=== PATIENT | male | born 1930 | race Caucasian/White ===

== ENCOUNTER 2016-10-27 07:04 | Outpatient (CLI) | payer MEDICARE ==
[2016-10-27 08:10] LABS: ALT (SGPT) 18 U/L (0-55); AST (SGOT) 17 U/L (5-34); Alkaline Phosphatase 75 U/L (40-150); Anion Gap 12 mmol/L (10-20); BUN (Urea Nitrogen) 23 mg/dL (8.4-25.7); Bilirubin, Total 0.9 mg/dL (0.2-1.2); Calc. Creatinine Clearance 0 mL/min (70-130); Carbon Dioxide 25 mmol/L (23-31); Chloride 108 mmol/L (98-107); Estimated GFR-MDRD 41; Globulin 2.6 g/dL (2.4-3.5); LDL Cholesterol, Calculated 56 mg/dL; Protein, Total 6.6 g/dL (5.8-8.1)
== END 2016-10-27 07:05 | disposition home or self-care (01) ==
LOC: BURLAB 07:04
PROVIDERS: ATTEND Internal Medicine Cardiovascular Disease
DX: I48.0 Paroxysmal atrial fibrillation (principal)
CPT/HCPCS: 36415; 80053; 80061

== ENCOUNTER 2017-04-28 07:06 | Outpatient (CLI) | payer MEDICARE ==
[2017-04-28 10:54] LABS: ALT (SGPT) 24 U/L (8-55); AST (SGOT) 22 U/L (5-34); Alkaline Phosphatase 87 U/L (40-150); Anion Gap 12 mmol/L (10-20); BUN (Urea Nitrogen) 28 mg/dL (8.4-25.7); Bilirubin, Total 0.7 mg/dL (0.2-1.2); Calc. Creatinine Clearance 0 mL/min (70-130); Calcium 9.4 mg/dL (7.8-10.44); Carbon Dioxide 26 mmol/L (23-31); Cardiac Risk 3.8 (Less than 4.5); Chloride 107 mmol/L (98-107); Cholesterol 106 mg/dl (< 200 Desired); Estimated GFR-MDRD 42; Globulin 2.8 g/dL (2.4-3.5); Glucose 98 mg/dL (83-110); HDL Cholesterol 28 mg/dL (>60 Neg Risk); LDL Cholesterol, Calculated 58 mg/dL; Potassium 4.3 mmol/L (3.5-5.1); Protein, Total 6.8 g/dL (5.8-8.1); Sodium 141 mmol/L (136-145); Triglycerides 101 mg/dL (Less than 150)
== END 2017-04-28 07:07 | disposition home or self-care (01) ==
LOC: BURLAB 07:06
PROVIDERS: ATTEND Internal Medicine Cardiovascular Disease
DX: E78.00 Pure hypercholesterolemia, unspecified (principal)
CPT/HCPCS: 36415; 80053; 80061

== ENCOUNTER 2017-09-07 10:53 | Outpatient (CLI) | payer MEDICARE ==
--- NOTE | 2017-09-07 22:20 | RAD ---
CERVICAL SPINE: 09/07/2017 FINDINGS: AP, open mouth, and lateral views were provided. There is loss of the normal cervical lordosis, which may be due to muscle spasm. Disk space narrowin g is present at C4-C5, C5-C6, and C6-C7. Some facet arthritis is noted at several levels, especially in the upper cervical spine. No fracture, dislocation, or soft tissue swelling is seen. The C1 to dens distance is normal. Ossification of the ligamentum nuchae is noted. IMPRESSION: Prominent degenerative changes of the spine, as noted above, including multilevel degenerative disk d isease. POS: HOME
== END 2017-09-07 10:54 | disposition home or self-care (01) ==
LOC: BURRAD 10:53
PROVIDERS: ATTEND Family Medicine
DX: M54.2 Cervicalgia (principal); M47.892 Other spondylosis, cervical region; M50.321 Other cervical disc degeneration at C4-C5 level
CPT/HCPCS: 72040

== ENCOUNTER 2018-10-23 23:04 | Emergency (ER) | payer MEDICARE ==
[2018-10-23] MEDS ORDERED: Morphine 4 MG/ML VIAL ONE (23:33)
[2018-10-23 23:41] LABS: #Basophils 0.1 thou/uL (0.0-0.2); #Eosinphils 0.4 thou/uL (0.0-0.7); #Lymphocytes 1.1 thou/uL (1.20-3.40); #Monocytes 0.6 thou/uL (0.11-0.59); #Neutrophils 5.1 thou/uL (1.40-6.50); %Eosinophils 5.6 % (0.0-10.0); %Lymphocytes 15.3 % (21.0-51.0); %Monocytes 8.5 % (0.0-10.0); %Neutrophils 69.6 % (42.0-75.0); Hemoglobin 12.8 g/dL (14.0-18.0); Mean Corpuscular Hemoglobin 28.4 pg (27.0-31.0); Mean Platelet Volume 6.5 fL (7.4-10.4); Platelet Count 139 thou/uL (130-400); RBC Distribution Width 12.9 % (11.5-14.5); Red Blood Cell (RBC) Count 4.51 mill/uL (4.70-6.10); White Blood Cell (WBC) Count 7.3 thou/uL (4.8-10.8)
[2018-10-23 23:53] LABS: ALT (SGPT) 11 U/L (8-55); AST (SGOT) 14 U/L (5-34); Alkaline Phosphatase 108 U/L (40-150); Anion Gap 14 mmol/L (10-20); BUN (Urea Nitrogen) 23 mg/dL (8.4-25.7); Bilirubin, Total 0.8 mg/dL (0.2-1.2); Calc. Creatinine Clearance 0 mL/min (70-130); Calcium 9.8 mg/dL (7.8-10.44); Carbon Dioxide 26 mmol/L (23-31); Chloride 105 mmol/L (98-107); Estimated GFR-MDRD 38; Globulin 3.4 g/dL (2.4-3.5); Glucose 122 mg/dL (83-110); Lipase 33 U/L (8-78); Potassium 3.8 mmol/L (3.5-5.1); Protein, Total 7.4 g/dL (5.8-8.1); Sodium 141 mmol/L (136-145)
[2018-10-23 23:58] LABS: Bilirubin Negative (Negative); Blood, Urine Trace (Negative); Clarity Clear (Clear); Glucose, Urine (Dipstick) Negative (Negative); Leukocyte Negative (Negative); Nitrite Negative (Negative); Protein, Urine (Dipstick) 100 mg/dL (Neg-Trace); Specific Gravity, Urine 1.025 (1.005-1.030); Urobilinogen 0.2 mg/dL (0.2-1.0); pH, Urine 5.5 (5.0-9.0)
[2018-10-24 00:10] LABS: CKMB 1.9 ng/mL (0-6.6)
[2018-10-24 00:11] LABS: RBC/HPF 0-3 HPF (0-3); Squamous Epithelial 0-3 HPF (0-3); WBC/HPF 0-3 HPF (0-3)
[2018-10-24 00:12] LABS: Hyaline Casts/LPF 0-3 HYALINE CAST LPF (0-3 Hyaline); Other Microscopic Description 1+ MUCUS
--- NOTE | 2018-10-24 11:47 | RAD ---
ABDOMEN: Date: 10-24-18 FINDINGS: Supine view of the abdomen showed dilation of small bowel suggestive of obstruction. The film is labe lled post tube, but I cannot substantiate the location of an NG tube at this point. IMPRESSION: Presumed small bowel obstruction. NG tube not appreciated. POS: HOME
--- NOTE | 2018-10-24 12:36 | CT ---
PRELIMINARY REPORT/[facility]/EMERGENTY AFTER-HOURS PROCEDURE CT Abdomen and Pelvis Without Contrast EXAM DATE/TIME: 10/24/2018 12:05 AM CLINICAL HISTORY: 88 years old, male; Pain; Abdominal pain; Generalized TECHNIQUE: Axial computed tomography images of the abdomen and pelvis without contrast. All CT scans at this facility use at least one of these dose optimization techniques: automated expos ure control; mA and/or kV adjustment per patient size (includes targeted exams where dose is matched to clinical indication); or iterative reconstruction. Coronal and sagittal reformatted images were cr eated and reviewed. COMPARISON: No relevant prior studies available. FINDINGS: Lower thorax: Small 1 mm nodules bilateral lower lobes. ABDOMEN: Liver: Normal. No mass. Gallbladder and bile ducts: Mild layering hyperdensity within the gallbladder lumen. Pancreas: Normal. No ductal dilation. Spleen: Normal. No splenomegaly. Adrenals: Normal. No mass. Kidneys and ureters: Atrophic left kidney. Small 3 mm stone in right kidney. Stomach and bowel: Several dilated 3.5 cm small bowel loops in right and mid lower abdomen with mild fluid stranding along the adjacent mesenteric fat. Moderate colonic diverticulosis particularly invol ving the descending-sigmoid colon. No radiographic signs of inflammation. Appendix: No evidence of appendicitis. PELVIS: Bladder: Unremarkable as visualized. Reproductive: Prostate appears within normal limits. ABDOMEN and PELVIS: Intraperitoneal space: Mild-moderate pelvic free fluid. Bones/joints: Chronic degenerative changes of the lumbar spine. Soft tissues: Unremarkable. Vasculature: Chronic atherosclerotic calcification of the vasculature. Lymph nodes: Normal. No enlarged lymph nodes. IMPRESSION: 1. Findings suspicious for distal small bowel obstruction, indeterminate etiology-possible internal h ernia/closed loop obstruction cannot be excluded. ---Followup study with administered oral contrast would be recommended to evaluate site and whether partial vs. complete obstruction. 2. Mild-moderate pelvic free fluid. 3. Moderate colonic diverticulosis particularly involving the descending-sigmoid colon. No radiograph ic signs of inflammation. 4. Suspected stones and/or debris in gallbladder. No evidence of intrahepatic or extrahepatic biliary ductal dilatation. 5. Small 3 mm stone in right kidney. Thank you for allowing us to participate in the care of your patient. Dictated and Authenticated by: Roman Kumar MD 10/24/2018 1:13 AM Central Time ([place] & [place]) FINAL REPORT CT ABDOMEN AND PELVIS WITHOUT CONTRAST: DATE: 10/24/2018. COMPARISON: No prior scans were available for comparison. FINDINGS: Axial slices were acquired without oral or IV contrast and coronal and sagittal reconstructions were done. The lung bases are clear. There are a few tiny 1-2 mm nodular densities in the lower lobes of indete rminate significance. The liver shows a calcified granuloma in it, but otherwise appears normal. e spleen, pancreas, and adrenal glands were unremarkable within the limitations of the noncontrast st udy. Layering dense material is seen in the gallbladder which could be either echogenic sludge or ve ry tiny gallstones. There is no thickening or stranding in or around the gallbladder. The patient's left kidney is quite atrophic. The right kidney contains a small calcification within it. The abdo analy aorta shows calcification, but no aneurysm. The major finding on the study is dilation of distal small bowel. The proximal small bowel is normal in size and the terminal ileum is normal in size, but in the mid to distal small loops are fluid-howie led and range up to 3.6 cm in diameter. There is some inflammatory stranding in the mesentery around some of the loops in the right flank. No free air or free fluid was seen. Diverticulosis is seen i n the colon, but there is no inflammatory change around it, nor is the colon distended. CT of the pelvis shows no additional findings of concern. No pelvic masses or fluid collections were seen. Minimal fat-filled inguinal hernias are noted. Anterior compression fractures of T10 and L2 are noted. These appear to be old. The remainder of e bony pelvis showed no acute findings. IMPRESSION: 1. Probable mid to distal small bowel obstruction. Etiology indeterminate, but the bowel both befor e and after this area are normal in caliber. There is some inflammatory change around this bowel in the right flank. 2. While there is a small amount of free fluid seen in the pelvis, it is not substantial. 3. Colonic diverticulosis without findings of diverticulitis. This is most noticeable in the sigmoi d region. 4. Small stones or echogenic sludge in the gallbladder. 5. Small nonobstructing right renal calculus. Atrophy of the left kidney. 6. Several 1-2 mm nodular densities in the lung bases of indeterminate significance. Report in agreement with preliminary reading by [employer]. POS: HOME
== END 2018-10-24 02:41 | disposition short-term general hospital (02) ==
LOC: BURERS 23:04
DX: K56.609 Unspecified intestinal obstruction, unspecified as to partial versus complete obstruction (principal); E78.5 Hyperlipidemia, unspecified; I11.0 Hypertensive heart disease with heart failure; I50.9 Heart failure, unspecified; I25.10 Atherosclerotic heart disease of native coronary artery without angina pectoris; F41.9 Anxiety disorder, unspecified; Z87.891 Personal history of nicotine dependence; Z79.891 Long term (current) use of opiate analgesic; Z79.899 Other long term (current) drug therapy
CPT/HCPCS: 71045; 74018; 74176; 80053; 81003; 81015; 82553; 83605; 83690; 84484; 85025; 93005; 94760; 96374; J2270

== ENCOUNTER 2018-11-09 16:18 | Inpatient (IN) | payer MEDICARE ==
[2018-11-09] MEDS ORDERED: Colchicine 0.6 MG TAB PO PRN (20:25)
[2018-11-09] MEDS ORDERED: traMADol HCl 50 MG TAB PO PRN ×2 (20:25)
[2018-11-09] MEDS: Apixaban 5 MG TAB PO SCH (21:19)
[2018-11-09] MEDS: Vancomycin HCl 25 MG/ML Oral PO SCH (23:13)
[2018-11-10 05:19] LABS: #Basophils 0.1 thou/uL (0.0-0.2); #Lymphocytes 0.9 thou/uL (1.20-3.40); #Monocytes 0.7 thou/uL (0.11-0.59); #Neutrophils 4.6 thou/uL (1.40-6.50); %Eosinophils 0.1 % (0.0-10.0); %Lymphocytes 14.8 % (21.0-51.0); %Monocytes 11.3 % (0.0-10.0); %Neutrophils 72.9 % (42.0-75.0); Hemoglobin 9.4 g/dL (14.0-18.0); Mean Corpuscular HGB CONC 31.9 g/dL (32.0-36.0); Mean Corpuscular Hemoglobin 27.3 pg (27.0-31.0); Mean Corpuscular Volume 85.5 fL (78.0-98.0); Mean Platelet Volume 6.6 fL (7.4-10.4); Platelet Count 142 thou/uL (130-400); RBC Distribution Width 13.5 % (11.5-14.5); Red Blood Cell (RBC) Count 3.44 mill/uL (4.70-6.10); White Blood Cell (WBC) Count 6.3 thou/uL (4.8-10.8)
[2018-11-10 05:28] LABS: ALT (SGPT) 17 U/L (8-55); AST (SGOT) 23 U/L (5-34); Albumin 2.6 g/dL (3.4-4.8); Alkaline Phosphatase 76 U/L (40-150); Anion Gap 12 mmol/L (10-20); BUN (Urea Nitrogen) 20 mg/dL (8.4-25.7); Bilirubin, Total 0.6 mg/dL (0.2-1.2); Calc. Creatinine Clearance 0 mL/min (70-130); Calcium 8.1 mg/dL (7.8-10.44); Carbon Dioxide 25 mmol/L (23-31); Chloride 109 mmol/L (98-107); Estimated GFR-MDRD 79; Globulin 2.3 g/dL (2.4-3.5); Glucose 125 mg/dL (83-110); Potassium 3.6 mmol/L (3.5-5.1); Protein, Total 4.9 g/dL (5.8-8.1); Sodium 142 mmol/L (136-145)
[2018-11-10] MEDS: Vancomycin HCl 25 MG/ML Oral PO SCH ×3 (06:13→17:34)
[2018-11-10] MEDS ORDERED: hydrOXYzine 25 MG TAB PO PRN (07:42)
[2018-11-10] MEDS: Carvedilol 3.125 MG TAB PO SCH ×2 (08:26→17:32)
[2018-11-10] MEDS: Finasteride 5 MG TAB PO SCH (08:28)
[2018-11-10] MEDS: Ezetimibe 10 MG TAB PO SCH (08:28)
[2018-11-10] MEDS: Tamsulosin HCl 0.4 MG CAP PO SCH (08:28)
[2018-11-10] MEDS: Saccharomyces boulardii 250 MG CAP PO SCH (08:29)
[2018-11-10] MEDS: Furosemide 40 MG TAB PO SCH (08:29)
[2018-11-10] MEDS: Apixaban 5 MG TAB PO SCH ×2 (08:29→21:01)
[2018-11-10] MEDS: Rosuvastatin 10 MG TAB PO SCH (08:29)
[2018-11-10] MEDS: Aspirin 81 mg Enteric Coated Tablet PO SCH (08:29)
[2018-11-10] MEDS ORDERED: Acetaminophen/Codeine 30-300mg Tablet PO SCH (09:00)
[2018-11-10] MEDS ORDERED: Lisinopril 5 MG TAB PO SCH (09:00)
[2018-11-10] MEDS: Lisinopril 5 MG TAB PO SCH (09:13)
[2018-11-10] MEDS: Nystatin Powder 15 GM BOT TOP PRN ×2 (09:14→21:00)
[2018-11-10 13:28] VITALS: BMI 30.8
[2018-11-11] MEDS: Vancomycin HCl 25 MG/ML Oral PO SCH ×4 (00:01→17:14)
[2018-11-11] MEDS ORDERED: Acetaminophen/Codeine 30-300mg Tablet PO PRN (07:29)
[2018-11-11] MEDS: Saccharomyces boulardii 250 MG CAP PO SCH (08:40)
[2018-11-11] MEDS: Ezetimibe 10 MG TAB PO SCH (08:41)
[2018-11-11] MEDS: Rosuvastatin 10 MG TAB PO SCH (08:41)
[2018-11-11] MEDS: Tamsulosin HCl 0.4 MG CAP PO SCH (08:42)
[2018-11-11] MEDS: Carvedilol 3.125 MG TAB PO SCH ×2 (08:42→17:14)
[2018-11-11] MEDS: Apixaban 5 MG TAB PO SCH ×2 (08:42→20:52)
[2018-11-11] MEDS: Lisinopril 5 MG TAB PO SCH (08:43)
[2018-11-11] MEDS: Furosemide 40 MG TAB PO SCH (08:43)
[2018-11-11] MEDS: Aspirin 81 mg Enteric Coated Tablet PO SCH (08:43)
[2018-11-11] MEDS: Finasteride 5 MG TAB PO SCH (08:44)
[2018-11-11] MEDS: Nystatin Powder 15 GM BOT TOP PRN (21:01)
[2018-11-11] MEDS: Acetaminophen 500 MG TAB PO PRN (22:55)
[2018-11-12] MEDS: Vancomycin HCl 25 MG/ML Oral PO SCH ×4 (00:19→17:08)
[2018-11-12 05:02] LABS: Hemoglobin 9.6 g/dL (14.0-18.0); Platelet Count 151 thou/uL (130-400)
[2018-11-12] MEDS: Acetaminophen 500 MG TAB PO PRN ×2 (06:13→21:46)
[2018-11-12] MEDS: Saccharomyces boulardii 250 MG CAP PO SCH (08:28)
[2018-11-12] MEDS: Tamsulosin HCl 0.4 MG CAP PO SCH (08:28)
[2018-11-12] MEDS: Finasteride 5 MG TAB PO SCH (08:28)
[2018-11-12] MEDS: Rosuvastatin 10 MG TAB PO SCH (08:28)
[2018-11-12] MEDS: Lisinopril 5 MG TAB PO SCH (08:29)
[2018-11-12] MEDS: Ezetimibe 10 MG TAB PO SCH (08:29)
[2018-11-12] MEDS: Carvedilol 3.125 MG TAB PO SCH ×2 (08:30→17:07)
[2018-11-12] MEDS: Apixaban 5 MG TAB PO SCH ×2 (08:30→21:47)
[2018-11-12] MEDS: Furosemide 40 MG TAB PO SCH (08:32)
[2018-11-12] MEDS: Aspirin 81 mg Enteric Coated Tablet PO SCH (08:32)
[2018-11-12] MEDS: Nystatin Powder 15 GM BOT TOP PRN (21:47)
[2018-11-13] MEDS: Vancomycin HCl 25 MG/ML Oral PO SCH ×4 (00:05→17:36)
[2018-11-13] MEDS: Aspirin 81 mg Enteric Coated Tablet PO SCH (08:42)
[2018-11-13] MEDS: Ezetimibe 10 MG TAB PO SCH (08:43)
[2018-11-13] MEDS: Rosuvastatin 10 MG TAB PO SCH (08:43)
[2018-11-13] MEDS: Furosemide 40 MG TAB PO SCH (08:44)
[2018-11-13] MEDS: Lisinopril 5 MG TAB PO SCH (08:44)
[2018-11-13] MEDS: Apixaban 5 MG TAB PO SCH ×2 (08:45→20:50)
[2018-11-13] MEDS: Finasteride 5 MG TAB PO SCH (08:45)
[2018-11-13] MEDS: Carvedilol 3.125 MG TAB PO SCH ×2 (08:45→17:38)
[2018-11-13] MEDS: Saccharomyces boulardii 250 MG CAP PO SCH (08:46)
[2018-11-13] MEDS: Tamsulosin HCl 0.4 MG CAP PO SCH (08:46)
[2018-11-13] MEDS: Acetaminophen 500 MG TAB PO PRN (17:46)
[2018-11-14] MEDS: Vancomycin HCl 25 MG/ML Oral PO SCH ×3 (00:20→12:58)
[2018-11-14] MEDS: Acetaminophen 500 MG TAB PO PRN (02:52)
[2018-11-14 04:37] LABS: Platelet Count 179 thou/uL (130-400)
[2018-11-14 06:23] VITALS: TEMP 98.3
[2018-11-14] MEDS: Tamsulosin HCl 0.4 MG CAP PO SCH (08:49)
[2018-11-14] MEDS: Rosuvastatin 10 MG TAB PO SCH (08:49)
[2018-11-14] MEDS: Lisinopril 5 MG TAB PO SCH (08:49)
[2018-11-14] MEDS: Apixaban 5 MG TAB PO SCH (08:50)
[2018-11-14] MEDS: Furosemide 40 MG TAB PO SCH (08:51)
[2018-11-14] MEDS: Finasteride 5 MG TAB PO SCH (08:51)
[2018-11-14] MEDS: Ezetimibe 10 MG TAB PO SCH (08:51)
[2018-11-14] MEDS: Aspirin 81 mg Enteric Coated Tablet PO SCH (08:51)
[2018-11-14] MEDS: Carvedilol 3.125 MG TAB PO SCH (08:57)
[2018-11-14] MEDS: Saccharomyces boulardii 250 MG CAP PO SCH (08:59)
[2018-11-14] MEDS ORDERED: Carbamide Peroxide 6.5% Otic Drops 15 ml Bottle EA EAR SCH (09:00)
[2018-11-14 09:04] VITALS: BP 145/73
--- NOTE | 2018-11-14 21:33 | DIS ---
DATE OF ADMISSION: 11/09/2018 DATE OF DISCHARGE: 11/14/2018 ADMISSION DIAGNOSES: C diff colitis, physical deconditioning, status post acute respiratory failure, atrial fibrillation, systolic congestive heart failure, hypertension, dyslipidemia, anxiety. PROCEDURES: None. HOSPITAL COURSE: 88-year-old male presented to our facility to participate with physical therapy and occupational therapy status post admission at [facility] in [place], where he was treated for Clostridium difficile colitis, sepsis, and respiratory failure requiring mechanical ventilation. The patient's treatment course prior to coming to our facility was set for a prolonged tapering his p.o. vancomycin course. This regimen has been followed during the patient's stay. He was able to participate with physical therapy, occupational therapy, and has made good progress where he is ambulating with the assistance of his walker and shown the ability to transfer. In speaking with Physical Therapy, they feel he is able to discharge to his home setting at this time with plans to continue with physical therapy in the outpatient setting at . The patient is in agreeance with this plan and is amenable to discharge to his home setting with the aforementioned prolonged tapering p.o. vancomycin course. DISPOSITION: The patient will discharge to his home setting. He may follow up with myself in 1 week. He may follow up with Dr. Beck in about 3 weeks, Dr. Sanabria in about 3 weeks, and with Dr. Cao in the next few months. He will resume physical therapy and occupational therapy at . DISCHARGE MEDICATIONS: The patient will resume his typical home medications along with new medication being vancomycin 250 mg p.o. q.i.d. for 10 days followed by 250 mg p.o. t.i.d. for 1 week, then 250 mg p.o. b.i.d. for a week, 250 mg daily for a week, and then 250 every other day for a week and then discontinuation of the medication at that time. He has been encouraged to take probiotics with this extended antibiotic course. Job ID: [id number]
== END 2018-11-14 14:00 | disposition home or self-care (01) | DRG 372 ==
LOC: BURMED 18:00
PROVIDERS: ADMIT Family Medicine; ATTEND Family Medicine
DX: A04.72 Enterocolitis due to Clostridium difficile, not specified as recurrent (principal); J96.10 Chronic respiratory failure, unspecified whether with hypoxia or hypercapnia; I50.20 Unspecified systolic (congestive) heart failure; I48.91 Unspecified atrial fibrillation; I11.0 Hypertensive heart disease with heart failure; E78.5 Hyperlipidemia, unspecified; F41.9 Anxiety disorder, unspecified; R53.81 Other malaise
CPT/HCPCS: 36415; 80053; 82565; 85014; 85018; 85025; 85049; J7620